=== PATIENT | female | born 1945 | race Hispanic/Latino ===

== ENCOUNTER → 2019-04-18 | Outpatient (CLI) | payer OTHER ==
[~2019-04-18] MED LIST: ACET325T51 PO; AEC81 PO; ALEN70TA10 PO; AMIO200T5 PO; ATOR10 PO; CALC1CAP22 PO; CARV6.25 PO; CLOP75TA14 PO; FAMO40TA7 PO; FURO80TA3 PO; INSLAN SQ; INSNOV SQ; LISI-617 PO; METH2.5T6 PO; PANT40TA25 PO; POTA20TA82 PO
== END | disposition home or self-care (01) ==
LOC: SHCH 09:49
PROVIDERS: ATTEND Internal Medicine Cardiovascular Disease
DX: I65.23 Occlusion and stenosis of bilateral carotid arteries (principal)
CPT/HCPCS: 93880

== ENCOUNTER → 2022-08-31 | Outpatient (CLI) | payer OTHER ==
[~2022-08-31] MED LIST changes: -ALEN70TA10 PO; +ALEN70TA80 PO; -AMIO200T5 PO; +AMIO200T68 PO; -LISI-617 PO; +LISI5TAB21 PO; -PANT40TA25 PO; +PANT40TA54 PO; +POTA-202 PO; -POTA20TA82 PO
== END | disposition home or self-care (01) ==
LOC: SHCH 09:49
PROVIDERS: ATTEND Internal Medicine Cardiovascular Disease
DX: I70.203 Unspecified atherosclerosis of native arteries of extremities, bilateral legs (principal)
CPT/HCPCS: 93925

== ENCOUNTER → 2023-04-29 | Outpatient (CLI) | payer OTHER ==
[~2023-04-29] MED LIST changes: +CLOP-31 PO; -CLOP75TA14 PO
== END | disposition home or self-care (01) ==
LOC: SHCH 08:01
PROVIDERS: ATTEND Internal Medicine Cardiovascular Disease
DX: I08.3 Combined rheumatic disorders of mitral, aortic and tricuspid valves (principal)
CPT/HCPCS: 93306

== ENCOUNTER 2024-09-12 01:24 | Emergency (ER) | payer OTHER ==
[~2024-09-12] VITALS: Ht 152.4 cm; Wt 66.2 kg
[~2024-09-12 01:24] MED LIST changes: -ACET325T51 PO; -ALEN70TA80 PO; -AMIO200T68 PO; +APIX5TAB PO; -ATOR10 PO; +ATOR20TA65 PO; +CALC-1125 PO; -CALC1CAP22 PO; -CLOP-31 PO; -FAMO40TA7 PO; +FERR325T29 PO; +FLUT15.845 NS; +FOLI0.8T3 PO; -FURO80TA3 PO; -INSLAN SQ; -INSNOV SQ; +INSU100I35 SQ; +MU-V1TAB28 PO; -PANT40TA54 PO; -POTA-202 PO; +PRED5TAB PO; +RIFA300C66 PO; +SEMA3TAB4 PO
[2024-09-12 02:13] LABS: BASOPHILS # (AUTO) 0.05 K/uL (0.00-0.20); BASOPHILS % (AUTO) 0.7 % (0.0-5.0); EOSINOPHILS # (AUTO) 0.24 K/uL (0.00-0.70); EOSINOPHILS % (AUTO) 3.4 % (0.0-8.0); IMMATURE GRANULOCYTE ABSOLUTE 0.04 K/uL (0-1); LYMPHOCYTES # (AUTO) 1.8 K/uL (1.0-4.8); LYMPHOCYTES % (AUTO) 25.5 % (21.0-51.0); MEAN CORPUSCULAR HGB CONC 32.6 g/dL (32.0-36.0); MEAN CORPUSCULAR VOLUME 101.3 fL (79-99); MONOCYTES # (AUTO) 0.5 K/uL (0.1-1.0); MONOCYTES % (AUTO) 7.1 % (3.0-13.0); NEUTROPHILS # (AUTO) 4.5 K/uL (1.8-7.7); NEUTROPHILS % (AUTO) 62.7 % (40.0-77.0); PLATELET COUNT (AUTO) 188 K/uL (130-400); RED BLOOD CELL COUNT(AUTO) 3.06 MIL/uL (4.00-5.50); RED CELL DISTRIBUTION WIDTH 14.4 % (11.0-15.5); WHITE BLOOD COUNT (AUTO) 7.1 K/uL (4.8-10.8)
[2024-09-12 02:56] VITALS: BP 154/57; PULSE 62; RESP 20; TEMP 97.5; O2SAT 98
[2024-09-12] MEDS: 0.9% NACL 250ML 250 ML IV ONE (03:45)
[2024-09-12] MEDS: Solu-medROL 125MG VIAL IVP ONE (04:52)
[2024-09-12 05:26] LABS: APPEARANCE,URINE CLEAR (CLEAR); BILIRUBIN,URINE NEGATIVE (NEGATIVE); COLOR,URINE YELLOW (YELLOW); GLUCOSE, URINE (UA) NEGATIVE (NEGATIVE); KETONES,URINE NEGATIVE (NEGATIVE); LEUKOCYTE ESTERASE ,URINE NEGATIVE Leu/uL (NEGATIVE); NITRATE,URINE NEGATIVE (NEGATIVE); OCCULT BLOOD,URINE NEGATIVE (NEGATIVE); PROTEIN,URINE NEGATIVE (NEGATIVE); UROBILINOGEN,URINE 0.2 mg/dL (0.2-1.0)
[2024-09-12 05:30] LABS: ADD UA MICROSCOPIC NO
== END 2024-09-12 07:34 | disposition home or self-care (01) ==
LOC: EDH 01:24
DX: R42 Dizziness and giddiness (principal); I25.10 Atherosclerotic heart disease of native coronary artery without angina pectoris; E11.9 Type 2 diabetes mellitus without complications; I11.9 Hypertensive heart disease without heart failure; R20.0 Anesthesia of skin; E78.00 Pure hypercholesterolemia, unspecified; M19.90 Unspecified osteoarthritis, unspecified site; Z79.01 Long term (current) use of anticoagulants; Z79.899 Other long term (current) drug therapy; Z79.4 Long term (current) use of insulin; Z79.82 Long term (current) use of aspirin; Z86.73 Personal history of transient ischemic attack (TIA), and cerebral infarction without residual deficits; Z95.1 Presence of aortocoronary bypass graft; Z90.710 Acquired absence of both cervix and uterus
CPT/HCPCS: 99285; 96374; 70450; 71045; 80048; 85025; 81003; 36415; 93005; J2919; J7050